=== PATIENT | female | born 1990 | race Two or more races ===

== ENCOUNTER 2018-08-13 05:50 | Emergency (ER) | payer MEDICAID, OTHER, SELFPAY ==
[~2018-08-13] VITALS: Ht 142.2 cm; Wt 68.2 kg
[2018-08-13] MEDS ORDERED: ONDANSETRON ODT 4 MG ONE (06:13)
[2018-08-13] MEDS ORDERED: ACETAMINOPHEN 500 MG TABLET ONE (06:13)
[2018-08-13] MEDS ORDERED: ONDANSETRON ODT 4 MG PO ONE (06:30)
[2018-08-13] MEDS ORDERED: ACETAMINOPHEN 500 MG TABLET PO ONE (06:30)
[2018-08-13 06:51] LABS: BASOPHILS # (AUTO) 0.04 x10^3/uL (0-0.1); BASOPHILS % (AUTO) 1 % (0-1); EOSINOPHILS # (AUTO) 0.05 x10^3/uL (0-0.4); EOSINOPHILS % (AUTO) 1 % (1-7); LYMPHOCYTES # (AUTO) 3.12 x10^3/uL (1-3.4); LYMPHOCYTES % (AUTO) 38 % (22-44); MD NO; MEAN CORPUSCULAR HEMOGLOBIN 26.2 pg (27.0-34.8); MEAN CORPUSCULAR HGB CONC 32.2 g/dL (32.4-35.8); MEAN CORPUSCULAR VOLUME 81.5 fL (80-100); MEAN PLATELET VOLUME 8.1 fL (7.4-10.4); MONOCYTES # (AUTO) 0.52 x10^3/uL (0.2-0.8); MONOCYTES % (AUTO) 6 % (2-9); NEUTROPHILS # (AUTO) 4.38 x10^3/uL (1.8-6.8); NEUTROPHILS % (AUTO) 54 % (42-75); PLATELET COUNT 381 x10^3/uL (130-400); RED BLOOD COUNT 4.68 x10^6/uL (3.82-5.3); RED CELL DISTRIBUTION WIDTH 14.9 % (9.6-15.2)
[2018-08-13 06:51] LABS: MICROSCOPIC INDICATED
[2018-08-13 06:59] LABS: ALBUMIN 3.6 g/dL (3.4-5.0); ANION GAP 6 mmol/L (5-15); CALCIUM 8.8 mg/dL (8.5-10.1); CHLORIDE 108 mmol/L (98-107); CREATININE 0.68 mg/dL (0.55-1.02)
[2018-08-13 07:15] LABS: CULTURE INDICATED? NO
[2018-08-13 07:29] VITALS: BP 112/68
[2018-08-13] MEDS ORDERED: IBUPROFEN 200 MG TABLET PO ONE (07:30)
[2018-08-13] MEDS ORDERED: IBUPROFEN 200 MG TABLET ONE (07:31)
== END 2018-08-13 08:16 | disposition home or self-care (01) ==
LOC: ED 08:10
DX: R10.2 Pelvic and perineal pain (principal); G89.11 Acute pain due to trauma
CPT/HCPCS: 36415; 76830; 80048; 81001; 82040; 84703; 85025; 99284; Q0162

== ENCOUNTER 2018-11-25 10:37 | Emergency (ER) | payer MEDICAID ==
[~2018-11-25] VITALS: Ht 142.2 cm; Wt 66.9 kg
--- NOTE | 2018-11-25 10:56 | NUR ---
PT TO ED FOR SUDDEN ONSET RUQ AND EPIGASTRIC ABD PAIN STARTING 20 MINUTES AGO. NO NAUSEA OR DIARRHEA REPORTED. CONNECTED TO MONITORS. VSS. PA TO BEDSIDE FOR ASSESSMENT AWAITING ORDERS.
[2018-11-25] MEDS ORDERED: MORPHINE SULFATE 4 MG/ML, 1ML IVPush PRN (11:00)
[2018-11-25] MEDS ORDERED: ONDANSETRON 2MG/ML, 2ML IVPush ONE (11:00)
[2018-11-25] MEDS ORDERED: SODIUM CHLORIDE FLUSH 10ML SYR IVF ONE (11:00)
[2018-11-25] MEDS ORDERED: ONDANSETRON 2MG/ML, 2ML ONE (11:07)
[2018-11-25] MEDS ORDERED: MORPHINE SULFATE 4 MG/ML, 1ML ONE (11:08)
[2018-11-25 11:12] VITALS: BP 115/83
--- NOTE | 2018-11-25 11:12 | NUR ---
IV ESTABLISHED. LABS DRAWM. PT MEDICATED PER MAR. VSS. NO NEEDS AT THIS TIME.
[2018-11-25 11:21] LABS: BASOPHILS # (AUTO) 0.04 x10^3/uL (0-0.1); BASOPHILS % (AUTO) 1 % (0-1); EOSINOPHILS # (AUTO) 0.02 x10^3/uL (0-0.4); EOSINOPHILS % (AUTO) 0 % (1-7); LYMPHOCYTES # (AUTO) 2.82 x10^3/uL (1-3.4); LYMPHOCYTES % (AUTO) 34 % (22-44); MD NO; MEAN CORPUSCULAR HGB CONC 32.1 g/dL (32.4-35.8); MEAN CORPUSCULAR VOLUME 81.1 fL (80-100); MEAN PLATELET VOLUME 8.3 fL (7.4-10.4); MONOCYTES # (AUTO) 0.28 x10^3/uL (0.2-0.8); MONOCYTES % (AUTO) 3 % (2-9); NEUTROPHILS # (AUTO) 5.09 x10^3/uL (1.8-6.8); NEUTROPHILS % (AUTO) 62 % (42-75); PLATELET COUNT 367 x10^3/uL (130-400); RED BLOOD COUNT 5.07 x10^6/uL (3.82-5.3); RED CELL DISTRIBUTION WIDTH 15.8 % (9.6-15.2)
[2018-11-25 11:33] LABS: ALANINE AMINOTRANSFERASE 21 U/L (12-78); ALBUMIN 4.2 g/dL (3.4-5.0); ANION GAP 8 mmol/L (5-15); CALCIUM 9.4 mg/dL (8.5-10.1); CHLORIDE 106 mmol/L (98-107); CREATININE 0.79 mg/dL (0.55-1.02)
[2018-11-25 11:37] LABS: ALKALINE PHOSPHATASE 86 U/L (45-117); BILIRUBIN,TOTAL 0.4 mg/dL (0.2-1.0); TOTAL PROTEIN 8.7 g/dL (6.4-8.2)
[2018-11-25 11:56] LABS: MICROSCOPIC AUTO
[2018-11-25 12:06] LABS: CULTURE INDICATED? YES
== END 2018-11-25 13:37 | disposition home or self-care (01) ==
LOC: ED 12:44
DX: N30.00 Acute cystitis without hematuria (principal); R10.13 Epigastric pain; R10.11 Right upper quadrant pain
CPT/HCPCS: 36415; 76700; 80053; 81001; 83690; 84703; 85025; 87086; 96374; 96375; 99284; J2405